=== PATIENT | male | born 1995 | race Caucasian/White ===

== ENCOUNTER 2017-01-06 18:26 | Emergency (ER) | payer OTHER ==
[2017-01-06 18:39] VITALS: TEMP 98.2
--- NOTE | 2017-01-06 19:59 | EDPHY ---
H & P Time Seen by Provider: 01/06/17 18:55 HPI/ROS: CHIEF COMPLAINT: Wrist pain HISTORY OF PRESENT ILLNESS: This is a 21-year-old male presenting to the emergency department complaining of right wrist pain. Patient was seen at [facility] today for follow-up along with a CT scan of his right wrist which was ordered by Dr. Covington due to increased pain. Patient states from 89 to the time he came in he had been having increased pain, patient is here for pain control REVIEW OF SYSTEMS: Constitutional: No fever, no chills. Eyes: No discharge. ENT: No sore throat. Cardiovascular: No chest pain, no palpitations. Respiratory: No cough, no shortness of breath. Musculoskeletal: No back pain. Right wrist pain Skin: No rashes. Neurological: No headache. Smoking Status: Current every day smoker Physical Exam: General Appearance: Alert, no distress. Eyes: no pallor or injection. Respiratory: There are no retractions, lungs are clear to auscultation. Cardiovascular: Regular rate and rhythm. Gastrointestinal: Abdomen is soft and nontender, no masses, bowel sounds normal. Neurological: No focal deficits Skin: Warm and dry, no rashes. Musculoskeletal: Neck is supple nontender. Right wrist tenderness with some swelling decreased range of motion, scars noted anterior and posterior due to previous surgeries. No erythema noted. Positive CMS intact Extremities: Right wrist tenderness with some swelling decreased range of motion , scars noted anterior and posterior due to previous surgeries. No erythema noted. Positive CMS intact. Moving all other extremities without difficulties Psychiatric: Patient is oriented X 3, there is no agitation. Constitutional: Initial Vital Signs Temperature (C) 36.8 C 01/06/17 18:37 Heart Rate 104 H 01/06/17 18:37 Respiratory Rate 14 01/06/17 18:37 Blood Pressure 109/80 01/06/17 18:37 O2 Sat (%) 99 01/06/17 18:37 O2 Delivery Mode Room Air Allergies/Adverse Reactions: No Known Allergies Allergy (Unverified 01/06/17 18:39) Home Medications: Medication Instructions Recorded oxyCODONE/APAP 5/325 [Percocet 1 - 2 tab PO Q6H PRN #20 tab 01/06/17 5/325 (*)] Medical Decision Making ED Course/Re-evaluation: Discussed ED plan of care: Reviewed CT scans with Dr. Escobar no acute injuries seen. Pain medication given. Splint to right wrist. Discussed patient to follow up with the [facility] on Monday per scheduled appointment, also recommend wearing a wrist brace, decrease any strenuous activity with right wrist, ibuprofen 600 mg every 6-8 hours, ice as needed for swelling several times a day Differential Diagnosis: Other differential diagnosis considered but not limited to acute fractures, dislocation, and osteomyelitis - Data Points Medications Given: Discontinued Medications Oxycodone/Acetaminophen (Percocet 5/325mg Prepack#4) 1 btl TAKEHOME EDNOW ONE Stop: 01/06/17 20:06 Last Admin: 01/06/17 20:14 Dose: 1 btl Departure - Departure Disposition: Home, Routine, Self-Care Clinical Impression: Wrist pain, chronic Qualifiers: Laterality: right Qualified Code(s): M25.531 - Pain in right wrist; G89.29 - Other chronic pain Condition: Good Instructions: Oxycodone/Acetaminophen (By mouth), Arthralgia (ED) Additional Instructions: Discussed discharge instructions with patient 1. Follow up with [facility] on Monday Dr. Covington 2. Wear wrist brace that has been given you today, ice 15 minutes several times a day to help with swelling 3. Ibuprofen 600 mg every 6-8 hours as needed Referrals: NONE *PRIMARY CARE P,. [Primary Care Provider] - As per Instructions [facility],. [Clinic] - As per Instructions Prescriptions: oxyCODONE/APAP 5/325 [Percocet 5/325 (*)] 1 - 2 tab PO Q6H PRN #20 tab PRN Reason: Pain, Severe
[2017-01-06] MEDS ORDERED: OXYCODONE/APAP 5/325MG PREPACK#4 BTL TAKEHOME ONE (20:05)
[2017-01-06 20:14] VITALS: BP 123/80; PULSE 83; RESP 16; O2SAT 97
== END 2017-01-06 20:14 | disposition home or self-care (01) ==
DX: M25.531 Pain in right wrist (principal); G89.29 Other chronic pain; F17.200 Nicotine dependence, unspecified, uncomplicated
CPT/HCPCS: L3908